=== PATIENT | female | born 1995 | race American Indian/Alaskan Native ===

== ENCOUNTER 2017-10-10 16:48 | Emergency (ER) | payer SELFPAY ==
[2017-10-10] MEDS ORDERED: XYLOCAINE 1% MPF 5 mL INFILTRATI ONE (20:17)
[2017-10-10] MEDS ORDERED: ROCEPHIN IM ONE (20:17)
[2017-10-10] MEDS ORDERED: ZITHROMAX PO ONE (20:17)
--- NOTE | 2017-10-10 20:17 | Emergency Department Report ---
ED Female HPI - General Chief complaint: Urogenital-Female Stated complaint: FEMALE- UROGENITLIA Time Seen by Provider: 10/10/17 19:37 Source: patient Mode of arrival: Ambulatory Limitations: No Limitations - History of Present Illness Initial comments: 21F PMH chlamydia presents with complaint of exposure to Chlamydia/gonorrhea. Patient states she has some yellow discharge since 2 days ago and states her boyfriend told her that he was diagnosed with chlamydia this morning. She denies fevers chills or abdominal pain. Some dysuria denies increased urinary frequency. Last menstrual period 10/05/17. Complaint: vaginal discharge Onset/Timin -: days(s) Location: labia Severity: mild Quality: burning Consistency: intermittent Worsens with: urination Are you Now?: No Last Menstrual Period: 10/05/17 EDC: 07/12/18 - Related Data Previous Rx's Medication Instructions Recorded Last Taken Type HYDROcodone/ACETAMINOPHEN [Lortab 1 each PO Q8H PRN #10 tablet 06/17/14 Unknown Rx 5-325 mg Tablet] Nitrofurantoin [place]/M-Cryst 100 mg PO Q12HR #20 capsule 06/17/14 Unknown Rx [Macrobid] metroNIDAZOLE [Metronidazole] 500 mg PO BID #14 tablet 10/10/17 Unknown Rx Allergies Allergy/AdvReac Type Severity Reaction Status Date / Time aspirin Allergy Unknown Verified 06/17/14 12:37 Sulfa (Sulfonamide Allergy Unknown Verified 06/17/14 12:37 Antibiotics) ED Review of Systems ROS: Stated complaint: FEMALE- UROGENITLIA Other details as noted in HPI Constitutional: denies: chills, fever Eyes: denies: eye pain, eye discharge, vision change ENT: denies: ear pain, throat pain Respiratory: denies: cough, shortness of breath, wheezing Cardiovascular: denies: chest pain, palpitations Endocrine: no symptoms reported Gastrointestinal: denies: abdominal pain, nausea, diarrhea Genitourinary: dysuria, discharge (3 days of yellow discharge). denies: urgency Musculoskeletal: denies: back pain, joint swelling, arthralgia Skin: denies: rash, lesions Neurological: denies: headache, weakness, paresthesias Psychiatric: denies: anxiety, depression Hematological/Lymphatic: denies: easy bleeding, easy bruising ED Past Medical Hx - Past Medical History Previous Medical History?: Yes Hx Asthma: Yes - Surgical History Additional Surgical History: x2 - Social History Smoking Status: Current Every Day Smoker Substance Use Type: Alcohol - Medications Home Medications: Home Medications Medication Instructions Recorded Confirmed Last Taken Type HYDROcodone/ACETAMINOPHEN [Lortab 1 each PO Q8H PRN #10 tablet 06/17/14 Unknown Rx 5-325 mg Tablet] Nitrofurantoin [place]/M-Cryst 100 mg PO Q12HR #20 capsule 06/17/14 Unknown Rx [Macrobid] metroNIDAZOLE [Metronidazole] 500 mg PO BID #14 tablet 10/10/17 Unknown Rx ED Physical Exam - General Limitations: No Limitations General appearance: alert, in no apparent distress - Head Head exam: Present: atraumatic, normocephalic - Eye Eye exam: Present: normal appearance, PERRL, EOMI - ENT ENT exam: Present: mucous membranes moist - Neck Neck exam: Present: normal inspection - Respiratory Respiratory exam: Present: normal lung sounds bilaterally. Absent: respiratory distress - Cardiovascular Cardiovascular Exam: Present: regular rate, normal rhythm. Absent: systolic murmur, diastolic murmur, rubs, gallop - GI/Abdominal GI/Abdominal exam: Present: soft, normal bowel sounds - External exam: Present: normal external exam Speculum exam: Present: normal speculum exam Bi-manual exam: Present: normal bi-manual exam (NO CMT or adnexal pain) - Extremities Exam Extremities exam: Present: normal inspection - Back Exam Back exam: Present: normal inspection - Neurological Exam Neurological exam: Present: alert, oriented X3, CN II-XII intact, normal gait - Psychiatric Psychiatric exam: Present: normal affect, normal mood - Skin Skin exam: Present: warm, dry, intact, normal color. Absent: rash ED Course Vital Signs 10/10/17 17:39 Temperature 98.4 F Pulse Rate 87 Respiratory 16 Rate Blood Pressure 125/62 O2 Sat by Pulse 100 Oximetry ED Medical Decision Making - Medical Decision Making A/P: exposure to GC/cervicitis, trichomonas 1-patient empirically treated with azithromycin and ceftriaxone. trich+ on wet prep, metronidazole 2-GC cultures sent 3-patient given follow-up with primary care/[facility] Critical care attestation.: If time is entered above; I have spent that time in minutes in the direct care of this critically ill patient, excluding procedure time. ED Disposition Clinical Impression: STD exposure, Cervicitis, Trichomonas infection Disposition: - TO HOME OR SELFCARE Is pt being admited?: No Does the pt Need Aspirin: No Condition: Stable Instructions: Cervicitis (ED), Trichomoniasis (ED) Prescriptions: metroNIDAZOLE [Metronidazole] 500 mg PO BID #14 tablet Referrals: [facility] [Provider Group] - 3-5 Days [facility] [Outside] - 3-5 Days Forms: STI Treatment and Prevention Time of Disposition: 20:20
[2017-10-10 20:37] LABS: Bilirubin,Urine NEG (Negative); Blood,Urine NEG (Negative); Ketones,Urine NEG (Negative); Leukocyte Esterase,Urine NEG (Negative); Mucus,Urine FEW /HPF; Nitrite,Urine NEG (Negative); Protein,Urine <15 mg/dL mg/dL (Negative); Urobilinogen,Urine < 2.0 mg/dL (<2.0)
[2017-10-10 23:44] VITALS: BP 123/60
== END 2017-10-10 21:20 | disposition home or self-care (01) ==
LOC: ED 16:48
DX: N72 Inflammatory disease of cervix uteri (principal); A59.9 Trichomoniasis, unspecified; J45.909 Unspecified asthma, uncomplicated; F17.200 Nicotine dependence, unspecified, uncomplicated; Z20.2 Contact with and (suspected) exposure to infections with a predominantly sexual mode of transmission; Z88.2 Allergy status to sulfonamides; Z88.8 Allergy status to other drugs, medicaments and biological substances
CPT/HCPCS: 81001; 81025; 87210; 87591; 96372; 99283; J0696